=== PATIENT | female | born 1995 | race Native Hawaiian/Other Pacific Islander ===

== ENCOUNTER 2017-06-21 14:51 | Emergency (ER) | payer OTHER ==
--- NOTE | 2017-06-21 17:26 | EDPHY ---
H & P Stated Complaint: flu A +, 20 weeks Time Seen by Provider: 06/21/17 17:09 HPI/ROS: CHIEF COMPLAINT: Flu, HISTORY OF PRESENT ILLNESS: The patient is a 20-week 22 y/o female complaining of cough, fever, and myalgias onset 24 hours ago. Her has been normal so far. Her myalgias were present throughout her abdomen and lower back. She went to urgent care today and was diagnosed with flu A and referred here for evaluation. She had some intermittent sharp perineal pain, but denies urinary symptoms or vaginal spotting. She has occasional sharp chest pain and mild shortness of breath with her cough. Decreased oral intake, has not urinated today. She took Tylenol for symptoms. She had asthma as a child, but has not continued to see a doctor for this and does not have a current inhaler. She is otherwise healthy. Reports she has not felt baby move yet. No chills, palpitations, vomiting, diarrhea, urinary complaints, headache, lightheadedness. REVIEW OF SYSTEMS: Aside from elements discussed in the HPI, a comprehensive 10-point review of systems was reviewed and is negative. PAST MEDICAL HISTORY: . Appendectomy. SOCIAL HISTORY: Nonsmoker. No recent alcohol use. No illicit drugs. OBGYN: being transferred to [facility] and planning on delivering here VITAL SIGNS: Reviewed by me. FHT on admission 150s GENERAL: Well-developed, well-nourished, no respiratory distress on exam. Reports she feels "terrible". HEENT: Atraumatic. Eyes: No icterus, no injection. Mouth: somewhat dry mucous membranes. No erythema or lesions. Neck: supple with no adenopathy. LUNGS: Clear to auscultation bilaterally, no wheezes, rhonchi or rales. Tachypnea. CARDIAC: Regular rate and rhythm, no rubs, murmurs or gallops. ABDOMEN: Soft, diffuse tenderness on abdomen including uterus. No guarding or rebound. Nondistended, bowel sounds normal. No contractions palpated. BACK: No CVA tenderness. No vaginal bleeding, spotting, or leakge. EXTREMITIES: No trauma. No edema. Range of motion is normal throughout. NEURO: Alert and oriented, grossly nonfocal. SKIN: Warm and dry, no rash. PSYCHIATRIC: Normal mentation, no agitation. Portions of this note were transcribed by a hospital medical biller. I personally performed a history, physical exam, medical decision making, and confirmed accuracy of information the transcribed note. - Personal History LMP (Females 10-55): Current Tetanus/Diphtheria Vaccine: Yes Current Tetanus Diphtheria and Acellular Pertussis (TDAP): Yes - Medical/Surgical History Hx Asthma: Yes Hx Chronic Respiratory Disease: No Hx Diabetes: No Hx Cardiac Disease: No Hx Renal Disease: No Hx Cirrhosis: No Hx Alcoholism: No Hx HIV/AIDS: No Hx Splenectomy or Spleen Trauma: No Other PMH: asthma, appy, - Social History Smoking Status: Never smoked Constitutional: Initial Vital Signs Temperature (C) 37.4 C 06/21/17 15:08 Heart Rate 93 06/21/17 15:08 Respiratory Rate 16 06/21/17 15:08 Blood Pressure 113/66 06/21/17 15:08 O2 Sat (%) 97 06/21/17 15:08 O2 Delivery Mode Room Air Allergies/Adverse Reactions: No Known Allergies Allergy (Unverified 06/21/17 15:08) Home Medications: Medication Instructions Recorded Oseltamivir Phosphate [Tamiflu 75 75 mg PO BID #10 cap 06/21/17 mg (*)] 06/21/17 Tylenol 06/21/17 Medical Decision Making - Diagnostics Imaging Results: Ultrasound: Impression: Viable intrauterine gestation in cephalic presentation. Size is consistent with dates. No source for pain identified. Dictated By: Memo Unger MD Imaging: Discussed imaging studies w/ skimmer scoop operator Radiologist ED Course/Re-evaluation: The patient is a 22 y/o female, 20 weeks , who presents with 24-hour history of flu symptoms and diagnosed flu A this afternoon at urgent care. Diffuse abdominal pain, no contractions, and diffuse body myalgias. Reports no urine output thus far today. Plan for IV, labs, UA, obstetrics US, and symptom management. 1L IV NS ordered. US shows viable intrauterine gestation consistent with dates. heart rate 153. Patient and anxious to leave. No urine yet. Explained the importance of being adequately hydrated when . Denies any cramping sensation or uterine contractions. Abdominal discomfort improving. 2nd liter hung. Patient now able to provide urine. UA shows ketones. Patient and quite anxious to leave. Again discussed importance of fluids, possible IV D5W, and observation to ensure that no labor develops. They wish to go home. Tamiflu given and script provided. Tylenol for fevers and body aches. Differential Diagnosis: Diff dx considered included but not limited to dehydration, labor, influenza, urinary tract infection, hypoxia. - Data Points Laboratory Results: Laboratory Results 06/21/17 18:00 06/21/17 18:00 Medications Given: Discontinued Medications Sodium Chloride (Ns) 1,000 mls @ 0 mls/hr IV ONCE ONE; Wide Open PRN Reason: Protocol Stop: 06/21/17 17:42 Last Admin: 06/21/17 17:56 Dose: 1,000 mls Sodium Chloride (Ns) 1,000 mls @ 0 mls/hr IV ONCE ONE PRN Reason: Wide Open Stop: 06/21/17 19:20 Last Admin: 06/21/17 19:23 Dose: 1,000 mls Dextrose/Sodium Chloride (D5w Ns) 1,000 mls @ 0 mls/hr IV EDNOW ONE PRN Reason: Wide Open Stop: 06/21/17 19:41 Last Admin: 06/21/17 20:18 Dose: Not Given Oseltamivir Phosphate (Tamiflu) 75 mg PO EDNOW ONE Stop: 06/21/17 18:58 Last Admin: 06/21/17 19:22 Dose: 75 mg Departure - Departure Disposition: Home, Routine, Self-Care Clinical Impression: Flu, Dehydration, 20 weeks gestation of Condition: Good Instructions: Oseltamivir (By mouth), Dehydration (ED), Influenza (ED) Additional Instructions: 1. Increase fluid intake significantly. Rest. 2. Use Tylenol and ibuprofen as directed for pain and fever. 3. Take Tamiflu as prescribed for flu. This will not cure the flu, but can help shorten the length of your illness. 4. Follow up with your OBGYN this week. 5. Return to the ED for worsening of condition. Adult Pain & Fever Control: We recommend Acetaminophen (Tylenol) and Ibuprofen (Motrin,Advil) for pain and fever control. When fever is high or pain severe, both drugs can be used at the same time, but at different intervals. Please note the time differences. Your dose is: Acetaminophen 650mg every 4 to 6 hours Note: do not take Acetaminophen with Hydrocodone (Vicodin, Lortab) or Oxycodone (Percocet). These medications also contain Acetaminophen. No more than 3000mg of Acetaminophen should be taken in 24 hours (for an adult). Referrals: [facility] [Outside] - As per Instructions Prescriptions: Oseltamivir Phosphate [Tamiflu 75 mg (*)] 75 mg PO BID #10 cap Report Scribed for: Susan Lees Report Scribed by: Laura Jackson Date of Report: 06/21/17 Time of Report: 17:26
[2017-06-21] MEDS ORDERED: NS 1,000 ML IV ONE ×2 (17:41→19:19)
[2017-06-21 18:13] LABS: PLATELET COUNT 176 10^3/uL (150-400)
[2017-06-21] MEDS ORDERED: OSELTAMIVIR PHOSPHATE 75 MG CAP PO ONE (18:57)
[2017-06-21] MEDS ORDERED: D5W NS 1,000 ML IV ONE (19:40)
[2017-06-21] MEDS ORDERED: FUROSEMIDE 40 MG/4 ML VIAL IVP ONE (19:41)
[2017-06-21 20:22] VITALS: BP 102/55; PULSE 91; RESP 20; TEMP 98.8; O2SAT 97
== END 2017-06-21 20:10 | disposition home or self-care (01) ==
DX: O99.512 Diseases of the respiratory system complicating pregnancy, second trimester (principal); J11.1 Influenza due to unidentified influenza virus with other respiratory manifestations; O99.282 Endocrine, nutritional and metabolic diseases complicating pregnancy, second trimester; E86.0 Dehydration; J45.909 Unspecified asthma, uncomplicated; Z3A.20 20 weeks gestation of pregnancy

== ENCOUNTER → 2017-07-19 | Outpatient (CLI) | payer OTHER | LOC: FIMAGING 07:48 | PROVIDERS: ATTEND Advanced Practice Midwife | DX: Z34.02 Encounter for supervision of normal first pregnancy, second trimester (principal); Z3A.23 23 weeks gestation of pregnancy ==

== ENCOUNTER 2017-09-20 08:57 | Observation (INO) | payer OTHER ==
--- NOTE | 2017-09-20 09:44 | PDGENHP ---
History and Physical - Chief Complaint abd pain and vomiting - History of Present Illness 22 yo G1 at 32w3d by 10 wk US presents to L&D with vomiting and abd pain since 0700. She works at [employer] and this started after having a sugary drink there. No on else has been sick in her life. Good movement, no vaginal bleeding, no leakage of fluid. No headache, no vis changes, no dysuria, no diarrhea, no chest pain, no dyspnea. Consents to have a urine drug screen performed today. course uncomplicated so far. Normal 20 week ultrasound. labs: 14.1 / 43.2 plt 283 O pos Ab scr neg RPR - NR HBsAg Neg HIV neg Varicella IM pap ASCUS+ HPV GC neg quad screen neg 28 wk : 12.2/36.7 1 hr GTT 133 Urine drug screen 03/22 + THC History Information - Allergies/Home Medication List Allergies/Adverse Reactions: No Known Allergies Allergy (Unverified 06/21/17 15:08) Home Medications: 06/21/17 [Last Taken Unknown] Tylenol 06/21/17 [Last Taken Unknown] I have personally reviewed and updated: family history, medical history, social history, surgical history - Past Medical History no pertinent PMH - Surgical History Reports: appendectomy (age 5) Additional surgical history: tonsillectomy age 15. wisdom teeth - Family History Additional family history: Mother - depression, anxiety. MGF - diabetes, Rhem arth, asthma, CAD, HTN - Social History Smoking Status: Never smoked Alcohol Use: None Drug Use: Marijuana (early in preg - pos thc screen 03/22) Review of Systems Review of Systems: ROS: 10pt was reviewed & negative except for what was stated in HPI & below Physical Exam Physical Exam: gen -pleasant, NAD except when vomiting. abd - gravid, soft, NT, no contractions palpable SSE: vagina - pink, no lesions cervix - appears closed, no lesions, appears long uterus - nontender, no palpable contractions TVUS - cervical length done: no funneling, even with fundal pressure 3.78cm, 3.45cm, 3.42cm, cephalic fetus 36.5 75 20 123/75 FHR - 130 reactive, mod variability, + accels, no decels toco - no contractions Constitutional: no apparent distress Eyes: PERRL Ears, Nose, Mouth, Throat: moist mucous membranes Cardiovascular: regular rate and rhythym Respiratory: no respiratory distress, no rales or rhonchi Skin: warm, normal color Musculoskeletal: full muscle strength Neurologic: AAOx3 Psychiatric: interacting appropriately
[2017-09-20] MEDS ORDERED: ONDANSETRON 4 MG/2 ML VIAL IVP PRN (10:05)
[2017-09-20 10:18] LABS: PLATELET COUNT 222 10^3/uL (150-400)
== END 2017-09-20 12:28 | disposition home or self-care (01) ==
LOC: FLD 08:57
PROVIDERS: ADMIT Advanced Practice Midwife; ATTEND Advanced Practice Midwife
DX: O99.89 Other specified diseases and conditions complicating pregnancy, childbirth and the puerperium (principal); R10.9 Unspecified abdominal pain; R11.10 Vomiting, unspecified; Z3A.32 32 weeks gestation of pregnancy
CPT/HCPCS: G0378 ×2; 80307; G0480; J2405

== ENCOUNTER 2017-11-10 06:00 | Inpatient (IN) | payer OTHER ==
[2017-11-10] MEDS ORDERED: MISOPROSTOL 200 MCG TAB PR PRN (06:54)
[2017-11-10] MEDS ORDERED: LIDOCAINE 1% 300 MG/30 ML SDV SC PRN (06:54)
[2017-11-10] MEDS ORDERED: TERBUTALINE SULFATE 1 MG/ML VIAL IV PRN (06:54)
[2017-11-10] MEDS ORDERED: IBUPROFEN 600 MG TAB PO PRN (06:54)
[2017-11-10] MEDS ORDERED: OLIVE OIL 118 ML BTL MISC PRN (06:54)
[2017-11-10] MEDS ORDERED: LR 1,000 ML IV PRN (06:54)
[2017-11-10] MEDS ORDERED: OXYTOCIN/RINGERS LACTATE 1,000 ML IV PRN (06:54)
[2017-11-10] MEDS ORDERED: EPSOM SALT 454 GM TP PRN (06:54)
[2017-11-10] MEDS ORDERED: LIDOCAINE 1% 300 MG/30 ML SDV ONE (08:08)
[2017-11-10] MEDS ORDERED: OLIVE OIL 118 ML BTL ONE (08:08)
[2017-11-10 08:09] LABS: PLATELET COUNT 211 10^3/uL (150-400)
[2017-11-10] MEDS ORDERED: MISOPROSTOL 200 MCG TAB ONE (08:09)
[2017-11-10] MEDS ORDERED: AMMONIA AROMATIC 1 EACH AMP IH ONE (08:09)
[2017-11-10] MEDS ORDERED: TERBUTALINE SULFATE 1 MG/ML VIAL ONE (08:09)
[2017-11-10] MEDS ORDERED: OXYTOCIN 10 UNIT/ML VIAL ONE (08:09)
--- NOTE | 2017-11-10 09:06 | PDGENHP ---
History and Physical History and Physical: CARE: [facility] HPI: Patient is a 22yo with IUP@ 39-5wks that presents to L&D for elective IOL. She was seen in office yesterday and desires IOL. Johnson balloon was placed at 1600 without difficulty. She reports having contractions starting at 0300. She denies any LOF, VB. She reports johnson coming out at 0400. She reports +FM at this time. She denies any headaches, visual changes, epigastric pain. EDC: 11/12/17 which is based on Ultrasound at 10 weeks. Her is complicated by: ALFREDA @ 21wks, h/o MJ use- UDS negative, abnormal 1hr GTT- 3hr NL Review of Systems: Constitutional: Denies any fever, chills, or fatigue HEENT: denies any visual changes, difficulty swallowing, hearing loss Cardiovascular: Denies any chest pain, palpitations, leg swelling Respiratory: denies any cough, wheezing, or shortness of breathe GI: Denies any nausea, vomiting, diarrhea, constipation : denies any dysuria, urgency, frequency, vaginal bleeding Musculoskeletal: denies any muscle or bone pain Skin: denies any rashes Neuro: denies any headache, seizures, lightheadedness, dizziness, or loss of consciousness Psychiatric: denies any depression, anxiety, or SI/HI thoughts HISTORY: Previous OB history: G1 Past medical history: noncontributory Past surgical history: tonsillectomy, appendectomy, oral surgery Medications: PNV Allergies (list reaction): NKDA LABS: Rh: O+ ABS: Neg Rubella: Immune HbsAg: NR HIV: NR VDRL: NR 1hr: 133, 3hr NL GC: Neg Chlamydia: Neg Pap: Normal GBS: negative BMI: (prepreg) 28 PHYSICAL EXAM: Constitutional: WN, A&Ox3 HEENT: normocephalic atraumatic, supple Heart: RRR, no murmur Chest: CTA-B Abdomen: Soft, nontender, gravid SVE: 4-5/70/-2 Extremities: trace edema, negative homans sign Neuro: grossly normal Psych: normal affect assessment: Reassuring FHTs, baseline 135 +accels, no decels, moderate variability Contractions: toco irregular Assessment: 1) 22 yo with IUP@ 39-5wks 2) elective IOL 3) GBS negative 4) Cat 1 FHR tracing Plan: 1) Admit to L&D 2) start pitocin PRN 3) AROM PRN 4) pain management PRN 5) anticipate
[2017-11-10] MEDS ORDERED: PHENYLEPHRINE HCL 100 MCG/ML SYR IVP PRN (11:37)
[2017-11-10] MEDS ORDERED: ONDANSETRON 4 MG/2 ML VIAL IVP PRN (11:37)
[2017-11-10] MEDS ORDERED: NALOXONE HCL 0.4 MG/ML INJ IVP PRN (11:37)
[2017-11-10] MEDS ORDERED: fentaNYL 100 MCG/2 ML INJ ONE (11:44)
[2017-11-10] MEDS ORDERED: PHENYLEPHRINE HCL 100 MCG/ML SYR ONE (11:44)
[2017-11-10] MEDS ORDERED: BUPIVACAINE 0.25% 30 ML SDV ONE (11:44)
[2017-11-10] MEDS ORDERED: fentaNYL 200 MCG, BUPIVACAINE 0.5% 20 ML in NS 100 ML EP SCH (12:00)
[2017-11-10] MEDS ORDERED: fentaNYL 2MCG/ML/BUP 0.1% RTU 100 ML EP SCH (12:00)
[2017-11-10] MEDS ORDERED: LR 500 ML IV SCH (12:00)
--- NOTE | 2017-11-10 12:41 | PREANESOB ---
Obstetric Pre-Anesthesia Info - General Info Proposed Procedure: labor : 1 Para: 0 CHERRIE: 11/12/17 Gestational Age: 39 week(s) and 5 day(s) - Info Status: Full Term Monitors: External FHR Pattern: Reassuring (see OB provider notes for more info about progress of labor) - Labor Status Indications for Labor Analgesia: Augmentation of Labor, Induction of Labor Labor Epidural: Proposed Anesthesia ROS: surgeries: appi, t&a, dental--all without anesthesia problems; nkda; meds: PNV , remote use of albuterol-none for about a year; PMH/ROS: remote hx asthma, obesity, Allergies/Adverse Reactions: Allergy/AdvReac Type Severity Reaction Status Date / Time No Known Allergies Allergy Unverified 06/21/17 15:08 Home Medications: Medication Instructions Recorded 1 tab PO DAILY 06/21/17 Tylenol 500 mg PO PRN 06/21/17 Visit Medications: Generic Name Dose Route Start Last Admin Trade Name Freq PRN Reason Stop Dose Admin Diphenhydramine HCl 25 - 50 mg 11/10/17 11:37 Benadryl Injection IVP 05/09/18 11:36 Q6HRS PRN Itching Ephedrine Sulfate 10 mg 11/10/17 11:37 Ephedrine Sulfate IV 05/09/18 11:36 .Q2M PRN Hypotension Lactated Ringer's 1,000 mls @ 0 mls/hr 11/10/17 06:54 Lr IV 11/11/17 06:53 PRN PRN SEE PROTOCOL CONDITIONS Protocol Per Protocol Oxytocin/Lactated Ringer's 1,000 mls @ 125 mls/hr 11/10/17 06:54 Pitocin 20 Units/Lr (Premix) IV PRN PRN Post bleeding Lactated Ringer's 500 mls @ 0 mls/hr 11/10/17 12:00 Lr IV 05/09/18 11:59 CONT BRIGID As Directed Fentanyl 200 mcg/ Bupivacaine 100 mls @ 0 mls/hr 11/10/17 12:00 HCl 20 ml/ Sodium Chloride EP 11/20/17 11:59 CONT BRIGID Protocol As Directed Ibuprofen 600 mg 11/10/17 06:54 Motrin PO ONCE PRN post , pain Lidocaine HCl 300 mg 11/10/17 06:54 Lidocaine Hcl 1% SC 05/09/18 06:53 ONCE PRN episiotomy Magnesium Sulfate 454 gm 11/10/17 06:54 Epsom Salt TP 05/09/18 06:53 Q1H PRN perineal discomfort Misoprostol 800 - 1,000 mcg 11/10/17 06:54 Cytotec UT ONCE PRN Vaginal Atony/Bleeding Naloxone HCl 0.4 mg 11/10/17 11:37 Narcan IVP 05/09/18 11:36 PRN PRN Respiratory depression [place] Oil 118 ml 11/10/17 06:54 Sweet Oil MISC 05/09/18 06:53 ONCE PRN perineal massage Ondansetron HCl 4 mg 11/10/17 11:37 Zofran IVP 11/11/17 11:36 Q4HRS PRN Nausea/Vomiting, Can't Take PO Phenylephrine HCl 100 mcg 11/10/17 11:37 Neosynephrine IVP 05/09/18 11:36 .Q2M PRN Hypotension Terbutaline Sulfate 0.25 mg 11/10/17 06:54 Brethine IV 05/09/18 06:53 ONCE PRN Tachysystole Discontinued Medications Generic Name Dose Route Start Last Admin Trade Name Freq PRN Reason Stop Dose Admin Ammonia (Aromatic Spirit) Confirm 11/10/17 08:09 Ammonia Aromatic Administered 11/10/17 08:10 Dose 1 each IH .STK-MED ONE Bupivacaine HCl Confirm 11/10/17 11:44 Sensorcaine 0.25% Sdv Administered 11/10/17 11:45 Dose 30 ml .ROUTE .STK-MED ONE Fentanyl Confirm 11/10/17 11:44 Sublimaze Administered 11/10/17 11:45 Dose 100 mcg .ROUTE .STK-MED ONE Lidocaine HCl Confirm 11/10/17 08:08 Lidocaine Hcl 1% Administered 11/10/17 08:09 Dose 300 mg .ROUTE .STK-MED ONE Misoprostol Confirm 11/10/17 08:09 Cytotec Administered 11/10/17 08:10 Dose 1,000 mcg .ROUTE .STK-MED ONE [place] Oil Confirm 11/10/17 08:08 Sweet Oil Administered 11/10/17 08:09 Dose 118 ml .ROUTE .STK-MED ONE Oxytocin Confirm 11/10/17 08:09 Pitocin Administered 11/10/17 08:10 Dose 40 unit .ROUTE .STK-MED ONE Phenylephrine HCl Confirm 11/10/17 11:44 Neosynephrine Administered 11/10/17 11:45 Dose 1,000 mcg .ROUTE .STK-MED ONE Terbutaline Sulfate Confirm 11/10/17 08:09 Brethine Administered 11/10/17 08:10 Dose 1 mg .ROUTE .STK-MED ONE - Anesthesia History Response to Local Anesthetics: Normal Anesthesia & Operative History: No Prior Problems Family Anesthesia History: Negative - Social History Substance Use/Abuse: Denies - Vital Signs Height/Weight (Nursing): Height 167.64 cm Weight 101.151 kg - Focused Exam Neck exam: FROM Mallampati Score: Class 2 Mouth exam: normal dental/mouth exam Pulmonary: no respiratory distress Cardiovascular: regular rate and rhythym Labs: 11/10/17 07:35 Patient ABO/Rh O POSITIVE 11/10/17 07:35 - Plan Consent Signed and on Chart: Yes Patient/Guardian Understands and Agrees to Plan: Yes Urgent/Emergent Case: Harini johnson completed preop but documented later for safe timely pt care
--- NOTE | 2017-11-10 12:48 | POSTANESTH ---
Post Anesthetic Evaluation Cardiovascular Status: Normal, Stable Respiratory Status: Normal, Stable Level of Consciousness/Mental Status: Can Participate in Eval Pain Control: Adequate, Prn Tx Ordered Nausea/Vomiting Control: Adequate, Prn Tx Ordered Complications Possibly Related to Anesthesia: None Noted (uneventful placement of epidural, good pain relief, stable VS, motor intact)
--- NOTE | 2017-11-10 13:28 | OBPROG ---
Labor Progress Note Assessment/Plan: Assessment: [id number] with IUP@39-5wks Elective IOL GBS Negative Cat 1 FHR tracing AROM- clear WILLIAM in place Plan: start pitocin at this time reassess 2-4hr/PRN anticipate 11/10/17 13:24 Subjective/Intrapartum Course: 11/10/17 13:27 Pt doing well, she is comfortable with WILLIAM. She denies any pain or pressure. She is agreeable to pitocin. TOSHIA Feliciano, at BS and supportive. Objective: 11/10/17 07:35 Patient ABO/Rh O POSITIVE 11/10/17 07:35 - SVE Dilation (cm): 4 Effacement (%): 75 Station: -2 Membranes: AROM Amniotic Fluid Color: Clear - Contraction Pattern Assessment Current Contraction Pattern: Irregular Oxytocin Orders Assessment - Pre-Induction/Augmentation Assessment Gestational Age: 39 week(s) and 5 day(s) ICD10 Worksheet Patient Problems: Problems Problem Status Onset Encounter for induction of labor Acute Supervision of normal first in third trimester Acute - ICD10 Problem Qualifiers (1) Encounter for induction of labor (2) Supervision of normal first in third trimester
[2017-11-10] MEDS ORDERED: LR 500 ML IV PRN (13:30)
[2017-11-10] MEDS ORDERED: OXYTOCIN/RINGERS LACTATE 500 ML IV SCH (13:30)
--- NOTE | 2017-11-10 13:32 | OBPROG ---
Labor Progress Note Assessment/Plan: Assessment: [id number] with IUP@39-5wks Elective IOL GBS Negative Cat 1 FHR tracing AROM- clear @ [address] Plan: will reassess in 2 hr if no cervical change will start pitocin pt requesting WILLIAM at this time Subjective/Intrapartum Course: 11/10/17 13:27 Pt doing well, she is comfortable with WILLIAM. She denies any pain or pressure. She is agreeable to pitocin. TOSHIA Feliciano, at BS and supportive. Objective: 11/10/17 07:35 Patient ABO/Rh O POSITIVE 11/10/17 07:35 - SVE Dilation (cm): 4 Effacement (%): 75 Station: -2 Membranes: AROM Amniotic Fluid Color: Clear - Contraction Pattern Assessment Current Contraction Pattern: Irregular - Procedures Non-surgical Procedures: Amniotomy - Physical Exam General Appearance: WD/WN, alert, no apparent distress Neck: supple Abdomen: non-tender, soft Extremities: non-tender, pedal edema Skin: normal color, warm/dry Neuro/Psych: alert, normal mood/affect, oriented x 3 Oxytocin Orders Assessment - Pre-Induction/Augmentation Assessment Indication: induction Presentation: Vertex Gestational Age: 39 week(s) and 5 day(s) Estimated Weight: [id number] Membrane Status: Ruptured Current Sterile Vaginal Exam (SVE): 4/70/-2 Current Contraction Pattern: Irregular - Bradshaw's Score Dilation: 3-4cm Effacement: 60-70 Station: -2 Cervix: Medium Cervix Position: Mid Bradshaw Score Total: 7 - Induction/Augmentation Consent Risks/Benefits of Procedure Reviewed/Pt Agrees to Proceed: Yes ICD10 Worksheet Patient Problems: Problems Problem Status Onset Encounter for induction of labor Acute Supervision of normal first in third trimester Acute - ICD10 Problem Qualifiers (1) Encounter for induction of labor (2) Supervision of normal first in third trimester
--- NOTE | 2017-11-10 16:11 | OBPROG ---
Labor Progress Note Assessment/Plan: Assessment: [id number] with IUP@39-5wks Elective IOL GBS Negative Cat 1 FHR tracing AROM- clear @ [address] Plan: cont pitocin reassess 2-4hr/PRN if no cervical change will place IUPC anticipate 11/10/17 16:10 Subjective/Intrapartum Course: 11/10/17 13:27 Pt doing well, she is comfortable with WILLIAM. She denies any pain or pressure. She is agreeable to pitocin. TOSHIA Feliciano, at BS and supportive. 11/10/17 16:10 Pt doing well, she reports pain and rectal pressure. She is breathing through contractions. TOSHIA Feliciano, at BS and supportive. Many family members present. Objective: 11/10/17 07:35 Patient ABO/Rh O POSITIVE 11/10/17 07:35 - SVE Dilation (cm): 5 Effacement (%): 80 Station: -2 Membranes: AROM Amniotic Fluid Color: Clear - Contraction Pattern Assessment Current Contraction Pattern: Irregular - FHR Assessment Masters FHR (bpm): 130 FHR Pattern Variability: Moderate FHR Category: 1 - Procedures Non-surgical Procedures: Amniotomy - Physical Exam Estimated Weight: [id number] Oxytocin Orders Assessment - Pre-Induction/Augmentation Assessment Presentation: Vertex Gestational Age: 39 week(s) and 5 day(s) Estimated Weight: 0919-2582 ICD10 Worksheet Patient Problems: Problems Problem Status Onset Encounter for induction of labor Acute Supervision of normal first in third trimester Acute - ICD10 Problem Qualifiers (1) Encounter for induction of labor (2) Supervision of normal first in third trimester
[2017-11-10] MEDS ORDERED: SIMETHICONE 80 MG TAB CHEW PO PRN (22:47)
[2017-11-10] MEDS ORDERED: HYDROCORTISONE 0.5% CREAM TP PRN (22:47)
[2017-11-10] MEDS ORDERED: HYDROCODONE/APAP 5/325 TAB PO PRN (22:47)
--- NOTE | 2017-11-10 22:51 | OBDEL ---
Info Type: Vaginal Presentation at Delivery: Vertex L&D Analgesia/Anesthesia Type: Epidural GBS+: No Intrapartum Medications: Generic Name Dose Route Start Last Admin Trade Name Freq PRN Reason Stop Dose Admin Lactated Ringer's 1,000 mls @ 0 mls/hr 11/10/17 06:54 11/10/17 13:52 Lr IV 11/11/17 06:53 1,000 mls PRN PRN Administration SEE PROTOCOL CONDITIONS Protocol Per Protocol Phenylephrine HCl 100 mcg 11/10/17 11:37 11/10/17 13:00 Neosynephrine IVP 05/09/18 11:36 100 mcg .Q2M PRN Administration Hypotension Discontinued Medications Generic Name Dose Route Start Last Admin Trade Name Freq PRN Reason Stop Dose Admin Ibuprofen 600 mg 11/10/17 06:54 11/10/17 22:45 Motrin PO 600 mg ONCE PRN Administration post , pain - Hospital Course Intrapartum: 11/10/17 13:27 Pt doing well, she is comfortable with WILLIAM. She denies any pain or pressure. She is agreeable to pitocin. TOSHIA Feliciano, at BS and supportive. 11/10/17 16:10 Pt doing well, she reports pain and rectal pressure. She is breathing through contractions. TOSHIA Feliciano, at BS and supportive. Many family members present. Indications for Delivery: Elective Vaginal Delivery - Delivery Provider Delivery Physician/CNM: Renetta Head - Labor and Delivery Onset of Contractions Date: 11/10/17 Onset of Contractions Time: 03:00 Onset of Contractions Type: Induced Rupture of Membranes Date: 11/10/17 Rupture of Membranes Time: 11:21 Rupture of Membranes Type: Artificial Amniotic Fluid Color: Clear Dilation Complete Date: 11/10/17 Dilation Complete Time: 20:10 Placenta Delivery Date: 11/10/17 Placenta Delivery Time: 20:42 Total Hours of Labor: 17 Non-surgical Procedures: Amniotomy Laceration: 2nd Degree, Other (Specify) (labial- bilateral and periurethral) Repair: 3-0, 4-0, Vicryl, Chromic Vaginal Sponge Count Correct: Yes Vaginal Needle Count Correct: Yes Vaginal Sweep Performed: Yes EBL: 350 Delivery Events: Nuchal Cord, Other (Specify) (compound right arm) Delivery Comment: delivered quickly, pushed approx 15 min tight shoulders with compound right arm/hand, nuchal cord x1, delivered through - Medications Labor Augmentation/Induction Methods Used: Pitocin, Fisher Bulb Labor Augmentation/Induction Indication: Elective Data CHERRIE: 11/12/17 Gestational Age: 39 week(s) and 5 day(s) Masters Delivery Date: 11/10/17 Delivery Time: 20:36 Sex of : Female Score (1 Min): 8 Score (5 Min): 9 ICD10 Worksheet Patient Problems: Problems Problem Status Onset Encounter for induction of labor Acute Nuchal cord, single gestation Acute Periurethral trauma during delivery Acute (spontaneous vaginal delivery) Acute Second degree perineal laceration during delivery Acute Supervision of normal first in third trimester Acute - ICD10 Problem Qualifiers (1) Encounter for induction of labor (2) Supervision of normal first in third trimester (3) (spontaneous vaginal delivery) (4) Second degree perineal laceration during delivery (5) Periurethral trauma during delivery (6) Nuchal cord, single gestation
[2017-11-11] MEDS: IBUPROFEN 600 MG TAB PO PRN ×3 (04:45→23:13)
--- NOTE | 2017-11-11 07:15 | POSTANESTH ---
Post Anesthetic Evaluation Cardiovascular Status: Normal, Stable Respiratory Status: Normal, Stable Level of Consciousness/Mental Status: Can Participate in Eval Pain Control: Adequate, Prn Tx Ordered Nausea/Vomiting Control: Adequate, Prn Tx Ordered Complications Possibly Related to Anesthesia: None Noted (uneventful resolution of epidural)
[2017-11-11] MEDS: DOCUSATE SODIUM 100 MG CAP PO PRN (08:12)
--- NOTE | 2017-11-11 16:56 | SOAPPROG ---
SOAP Progress Note Assessment/Plan: Assessment: ppd # 1 s/p breast feeding Plan: routine post care 11/11/17 16:54 Subjective: patient is doing well. is exhausted. working on breast feeding. denies headache and changes in vision. bleeding is slowing down. no issues. Objective: Vital Signs Temp Pulse Resp BP Pulse Ox 36.5 C 81 20 104/68 97 11/11/17 05:00 11/11/17 05:00 11/11/17 05:00 11/11/17 05:00 11/11/17 05:00 Laboratory Results 11/11/17 05:00 11/10/17 11/11/17 11/12/17 05:59 05:59 05:59 Output Total 350 Balance -350 Physical Exam - Physical Exam General Appearance: WD/WN, alert, no apparent distress Neck: non-tender, full range of motion Respiratory: chest non-tender, lungs clear, normal breath sounds Cardiac/Chest: normal peripheral pulses, regular rate, rhythm Abdomen: normal bowel sounds, non-tender, soft, other (fundus firm and non tender) Skin: normal color, warm/dry Extremities: normal range of motion, non-tender, normal inspection, normal capillary refill Neuro/Psych: no motor/sensory deficits, alert, normal mood/affect, oriented x 3 ICD10 Worksheet Patient Problems: Problems Problem Status Onset Encounter for induction of labor Acute Nuchal cord, single gestation Acute Periurethral trauma during delivery Acute (spontaneous vaginal delivery) Acute Second degree perineal laceration during delivery Acute Supervision of normal first in third trimester Acute
[2017-11-12] MEDS: IBUPROFEN 600 MG TAB PO PRN ×2 (04:57→11:32)
[2017-11-12] MEDS: DOCUSATE SODIUM 100 MG CAP PO PRN (11:32)
--- NOTE | 2017-11-12 12:47 | OBGCSDC ---
General Delivery Information - General Info : 1 Para: 1 Abortions: 0 Type: Vaginal L&D Analgesia/Anesthesia Type: Epidural Admission Date: 11/10/17 Labs: Patient ABO/Rh O POSITIVE 11/10/17 07:35 Hct 33.2 % (38.0-47.0) L 11/11/17 05:00 - Hospital Course Intrapartum: 11/10/17 13:27 Pt doing well, she is comfortable with WILLIAM. She denies any pain or pressure. She is agreeable to pitocin. TOSHIA Feliciano, at BS and supportive. 11/10/17 16:10 Pt doing well, she reports pain and rectal pressure. She is breathing through contractions. TOSHIA Feliciano, at BS and supportive. Many family members present. : 11/12/17 12:46 Pt seen and examined. Doing well with no complaints. Some mild cramping, only during BF. Mod lochia. She is OOB, ekta reg diet, voiding and BM x 1. BF well so far. Ready to go home today. Vaginal - Delivery Provider Delivery Physician/CNM: Renetta Head - Diagnosis Labor: Induced Rupture of Membranes Type: Artificial Amniotic Fluid Color: Clear Laceration: 2nd Degree, Other (Specify) (labial- bilateral and periurethral) Repair: 3-0, 4-0, Vicryl, Chromic Delivery Events: Nuchal Cord, Other (Specify) (compound right arm) - Procedures Non-surgical Procedures: Amniotomy - Delivery Non-surgical Procedures: Amniotomy EBL: 350 Data CHERRIE: 11/12/17 Gestational Age: 40 week(s) and 0 day(s) Masters Delivery Date: 11/10/17 Delivery Time: 20:36 Sex of Infant: Female Score (1 Min): 8 Score (5 Min): 9 Discharge Information - Discharge Information Condition: Good Instruction/Follow Up: Two Weeks
--- NOTE | 2017-11-12 12:47 | OBPP ---
Progress Note Assessment/Plan: Assessment: 1) s/p PPD # 2 - pt is stable 2) Anemia - pt is asymptomatic Plan: Plan for d/c home today Instructions reviewed with the pt No Rx given Cont PNV and iron Pelvic rest RTC in 2 weeks for pp check with CNM 11/12/17 12:47 Subjective/ Course: 11/12/17 12:46 Pt seen and examined. Doing well with no complaints. Some mild cramping, only during BF. Mod lochia. She is OOB, ekta reg diet, voiding and BM x 1. BF well so far. Ready to go home today. Objective: 11/11/17 05:00 Patient ABO/Rh O POSITIVE 11/10/17 07:35 Temp Pulse Resp BP Pulse Ox 36.8 C 70 18 110/80 96 11/11/17 19:51 11/11/17 19:51 11/11/17 19:51 11/11/17 19:51 11/11/17 19:51 Uterine Position/Fundal Height: Umbilicus -2 Uterine Tone: Firm Physical Exam - Physical Exam General Appearance: WD/WN, alert, no apparent distress Respiratory: lungs clear, normal breath sounds Cardiac/Chest: regular rate, rhythm Abdomen: normal bowel sounds, non-tender, soft Extremities: non-tender, normal inspection Skin: normal color, warm/dry Neuro/Psych: alert, normal mood/affect, oriented x 3
[2017-11-12 16:31] VITALS: BP 113/66
== END 2017-11-12 12:00 | disposition home or self-care (01) | DRG 775 ==
LOC: FLD 06:27 → FOB 11-11 00:10
PROVIDERS: ADMIT Advanced Practice Midwife; ATTEND Obstetrics & Gynecology
PROC: 10E0XZZ Delivery of Products of Conception, External Approach (ICD-10-PCS; principal; 2017-11-10)
PROC: 0KQM0ZZ Repair Perineum Muscle, Open Approach (ICD-10-PCS; principal; 2017-11-10)
PROC: 3E033VJ Introduction of Other Hormone into Peripheral Vein, Percutaneous Approach (ICD-10-PCS; principal; 2017-11-10)
PROC: 0U7C7DZ Dilation of Cervix with Intraluminal Device, Via Natural or Artificial Opening (ICD-10-PCS; principal; 2017-11-10)
PROC: 10907ZC Drainage of Amniotic Fluid, Therapeutic from Products of Conception, Via Natural or Artificial Opening (ICD-10-PCS; principal; 2017-11-10)
DX: O70.1 Second degree perineal laceration during delivery (principal); O71.82 Other specified trauma to perineum and vulva; O69.82X0 Labor and delivery complicated by other cord entanglement, without compression, not applicable or unspecified; O99.02 Anemia complicating childbirth; D64.9 Anemia, unspecified; Z3A.39 39 weeks gestation of pregnancy; Z37.0 Single live birth
CPT/HCPCS: J2370; J2590; J3010; J3105

== ENCOUNTER → 2017-11-18 | Outpatient (CLI) | payer OTHER | LOC: FLACT 15:30 | PROVIDERS: ATTEND Advanced Practice Midwife | DX: Z39.1 Encounter for care and examination of lactating mother (principal) | CPT/HCPCS: G0463 ==